=== PATIENT | female | born 2005 | race Two or more races ===

== ENCOUNTER 2023-06-26 09:40 | Outpatient (CLI) | payer MEDICAID | END 2023-06-26 23:59 | disposition home or self-care (01) | LOC: RAD 09:40 | PROVIDERS: ATTEND Family Medicine | DX: Z34.82 Encounter for supervision of other normal pregnancy, second trimester (principal); Z3A.15 15 weeks gestation of pregnancy | CPT/HCPCS: 76805 ==

== ENCOUNTER 2023-08-28 09:47 | Outpatient (CLI) | payer MEDICAID | END 2023-08-28 23:59 | disposition home or self-care (01) | LOC: RAD 09:47 | PROVIDERS: ATTEND Family Medicine | DX: Z34.82 Encounter for supervision of other normal pregnancy, second trimester (principal); Z3A.24 24 weeks gestation of pregnancy | CPT/HCPCS: 76811 ==